=== PATIENT | female | born 1935 | race Caucasian/White ===

== ENCOUNTER 2018-02-21 18:15 | Observation (INO) ==
[2018-02-21] MEDS ORDERED: 0.9 % Sodium Chloride 1,000 ML IVC ONE (18:19)
--- NOTE | 2018-02-21 18:22 | Emergency Department Note ---
Disposition Clinical Impression: IgA myeloma, Weakness Disposition: Still a Patient Condition: Good General Adult HPI - General Stated complaint: FAUSTINA Time Seen by Provider: 02/21/18 18:18 Source: patient, family, EMS Mode of arrival: EMS Limitations: no limitations Nursing Notes Reviewed: Yes Vital Signs Reviewed: Yes - History of Present Illness HPI Narrative: Patient presents to the ED via EMS and was seen and evaluated upon arrival. Patient has a history of multiple myeloma and is followed at cancer Center here. Saw her physician today. Family states that patient has been complaining of weakness, decreased appetite and shortness of breath. Shortness of breath started around 3 PM. No cough or chest pain associated with it. She denies any history of COPD. She is currently receiving chemotherapy and radiation on her chest. Family reports that she has had less than 100 kike all day. Reports that she feels very dehydrated and does not feel well at all. - Related Data Home Medications Medication Instructions Recorded Confirmed Multivitamin [Multivitamins] 1 each PO DAILY 05/28/15 02/20/18 Aspirin 81 mg PO DAILY 06/04/15 02/20/18 Furosemide [Lasix] 20 mg PO DAILY PRN 02/07/17 02/20/18 Lidocaine/Prilocaine CREAM [Emla] 1 gm TP AD 02/07/17 02/20/18 Meclizine [Antivert] 12.5 mg PO TID PRN 02/07/17 02/20/18 Prochlorperazine Maleate 10 mg PO Q6HR PRN 02/07/17 02/20/18 [Compazine] Levothyroxine Sodium [Levo-T] 50 mcg PO DAILY 01/16/18 02/20/18 Previous Rx's Medication Instructions Recorded Cyanocobalamin (B-12) [Vitamin B12] 1,000 mcg PO DAILY #90 tablet 05/15/17 Mometasone Furoate [Nasonex] 17 gm NS DAILY #1 bottle 07/28/17 Omeprazole [PriLOSEC] 20 mg PO BIDAC #60 cap 08/21/17 valACYclovir [Valtrex] 500 mg PO BID #60 tablet 10/20/17 Oxycodone HCl [Oxaydo] 1 tab PO Q8H PRN #90 tablet.orl 11/14/17 Diphenoxylate/Atropine [Lomotil 1 tab PO QID PRN 5 Days #30 tablet 11/28/17 2.5 mg/0.025 mg] Metoprolol [Lopressor] 1 tab PO BID #60 tablet 11/28/17 Morphine Sulfate [Arymo ER] 30 mg PO BID 30 Days #60 tab.po.er 02/08/18 Potassium Chloride [K-Tab ER] 1 tab PO DAILY #30 tablet.er 02/19/18 Allergies Allergy/AdvReac Type Severity Reaction Status Date / Time Sulfa (Sulfonamide Allergy Hives Verified 02/20/18 08:18 Antibiotics) Review of Systems: As reviewed in the HPI. All other systems reviewed are negative or normal. Past Medical History - Past Medical History Attestation: Yes The following information was validated with the patient. Source: patient Medical history: Reports: arthritis, cancer, DVT, hypertension, osteoporosis Surgical history: Reports: no surgical history Psychiatric history: Reports: no psych history - Social History Smoking Status: Never smoker Smokeless Tobacco Status: No Alcohol use: Reports: none Drug use: Reports: none Physical Exam - General Limitations: no limitations General appearance: alert, in no apparent distress, cachectic - Head Head exam: atraumatic, normocephalic, normal inspection - Eye Eye exam: Present: normal appearance, PERRL, EOMI - ENT ENT exam: normal exam, normal oropharynx, mucous membranes moist - Chest Chest inspection: Present: normal inspection, symmetric chest wall rise - Respiratory Respiratory exam: Present: normal lung sounds bilaterally - Cardiovascular Cardiovascular exam: Present: regular rate, normal rhythm, normal heart sounds - Abdominal Exam Abdominal exam: Present: soft, Non-Tender. Absent: tenderness, distention, guarding, rebound, rigidity - Extremities Exam Extremities exam: Present: normal inspection, full ROM. Absent: tenderness, pedal edema - Neurological Exam Neurological exam: Present: alert, oriented X3 - Psychiatric Psychiatric exam: Present: flat affect - Skin Skin exam: Present: warm, dry, intact, normal color Course Course Narrative: Patient presenting the ED with weakness, shortness of breath and decreased appetite. She is a cancer patient. Looks dehydrated. We will check labs, chest x-ray. Patient will be signed out to the oncoming nighttime team, Dr. Torres and Lupillo
[2018-02-21 18:54] LABS: Bilirubin,Urine Negative (Negative); Blood,Urine Negative (Negative); Clarity,Urine Clear (Clear); Color,Urine Yellow (Yellow); Glucose,Urine (UA) Normal (Normal); Ketones,Urine Negative (Negative); Leukocyte Esterase,Urine Negative (Negative); Nitrite,Urine Negative (Negative); Protein,Urine 30 mg/dL (Neg-Trace); Urobilinogen,Urine Normal (Normal)
[2018-02-21 18:59] LABS: Bacteria,Urine None Seen per hpf (None-Few); Hyaline Casts,Urine None Seen per lpf (None-Few); RBC,Urine 0-3 per hpf (0-3); Squamous Epithelial Cell,Urine Many per lpf (None-Few); WBC,Urine 0-3 per hpf (0-3)
[2018-02-21 19:09] LABS: Mean Corpuscular HGB Conc 33.1 g/dL (31.6-35.5); Red Cell Distribution Width 17.5 % (11.5-14.5)
[2018-02-21 19:11] LABS: Basophils % 0.3 %; Eosinophils % 0.6 %; Hematocrit 27.2 % (35.3-44.9); Immature Granulocytes % 1.4 % (0-4); Immature Platelets 4.9 % (1.1-6.1); Lymphocytes # 0.3 K/mcL (0.6-4.6); Mean Corpuscular Volume 108.8 fL (83.0-100.0); Mean Platelet Volume 11.9 fL (9.4-12.4); Monocytes # 0.2 K/mcL (0.0-1.3); Monocytes % 4.4 %; Neutrophils # 3.1 K/mcL (1.6-8.9); Platelet Count 66 K/mcL (140-400); Segmented Neutrophils % 85.3 %
[2018-02-21 19:14] LABS: INR 1.2; Prothrombin Time 12.7 Seconds (9.4-12.1)
[2018-02-21 19:17] LABS: Activated Partial Thrombo Time 55.4 Seconds (26.0-36.0)
[2018-02-21 19:26] LABS: Platelet Estimate Decreased (Normal)
[2018-02-21 19:34] LABS: BUN/Creatinine Ratio 21 (6-26); Blood Urea Nitrogen 13 mg/dL (8-23); Calcium 8.4 mg/dL (8.6-10.3); Carbon Dioxide 24 mEq/L (23-29); Chloride 103 mEq/L (98-107); Creatine Kinase 21 Units/L (30-223); Glucose 99 mg/dL (70-105); Magnesium 1.7 mg/dL (1.6-2.6); Osmolality,Calculated 286 (280-300); Phosphorous 3.4 mg/dL (2.7-4.5); Potassium 3.8 mEq/L (3.5-5.1); Sodium 138 mEq/L (136-145); Troponin I < 0.03 ng/mL (< 0.04); eGFR For African Americans > 60 (> 60); eGFR For Non-African Americans > 60 (> 60)
--- NOTE | 2018-02-21 20:29 | Emergency Department Note ---
Disposition Clinical Impression: IgA myeloma, Weakness, Pancytopenia, Pleural effusion CHF (congestive heart failure) Qualifiers: Heart failure type: unspecified Heart failure chronicity: acute on chronic Qualified Code(s): I50.9 - Heart failure, unspecified Disposition: Admitted As Inpatient Condition: Good Time of Disposition: 21:10 General Adult HPI - General Chief complaint: ED Shortness of Breath/Dyspnea Stated complaint: FAUSTINA Time Seen by Provider: 02/21/18 18:18 Source: patient, family, EMS Mode of arrival: EMS Limitations: no limitations Nursing Notes Reviewed: Yes Vital Signs Reviewed: Yes - History of Present Illness Pain Scale: 4 - Related Data Home Medications Medication Instructions Recorded Confirmed Multivitamin [Multivitamins] 1 each PO DAILY 05/28/15 02/21/18 Aspirin 81 mg PO DAILY 06/04/15 02/21/18 Furosemide [Lasix] 20 mg PO DAILY PRN 02/07/17 02/21/18 Lidocaine/Prilocaine CREAM [Emla] 1 gm TP AD 02/07/17 02/21/18 Meclizine [Antivert] 12.5 mg PO TID PRN 02/07/17 02/21/18 Prochlorperazine Maleate 10 mg PO Q6HR PRN 02/07/17 02/21/18 [Compazine] Levothyroxine Sodium 75 mcg PO DAILY 02/21/18 02/21/18 Metoprolol [Lopressor] 25 mg PO BID 02/21/18 02/21/18 Oxycodone HCl [Oxaydo] 1 tab PO Q4H PRN 02/21/18 02/21/18 Previous Rx's Medication Instructions Recorded Cyanocobalamin (B-12) [Vitamin B12] 1,000 mcg PO DAILY #90 tablet 05/15/17 Omeprazole [PriLOSEC] 20 mg PO BIDAC #60 cap 08/21/17 valACYclovir [Valtrex] 500 mg PO BID #60 tablet 10/20/17 Diphenoxylate/Atropine [Lomotil 1 tab PO QID PRN 5 Days #30 tablet 11/28/17 2.5 mg/0.025 mg] Morphine Sulfate [Arymo ER] 30 mg PO BID 30 Days #60 tab.po.er 02/08/18 Potassium Chloride [K-Tab ER] 1 tab PO DAILY #30 tablet.er 02/19/18 Allergies Allergy/AdvReac Type Severity Reaction Status Date / Time Sulfa (Sulfonamide Allergy Hives Verified 02/20/18 08:18 Antibiotics) Past Medical History - Past Medical History Medical history: Reports: arthritis, cancer, DVT, hypertension, osteoporosis Surgical history: Reports: no surgical history Psychiatric history: Reports: no psych history - Social History Smoking Status: Never smoker Smokeless Tobacco Status: No Alcohol use: Reports: none Drug use: Reports: none Physical Exam - General Limitations: no limitations General appearance: alert, in no apparent distress, cachectic Course Course Narrative: Patient signed out by the day crew. Please see their note for further. Patient has a history of multiple myeloma. She reports feeling increasingly weak to coming to the hospital today. She also reports occasional shortness of breath. She states her family points out or shortness of breath more than she does. She denies any cough or congestion. She denies any fevers. She is a cachectic small female resting in bed. She is on oxygen at this time. When oxygen is turned off her oxygen saturation drops into the 80s. Her lung sounds are relatively clear however on exam. She does have a pleural effusion on chest x-ray. She is also pancytopenic. We will admit patient to the hospital for decomposition, new CHF as her BNP is also elevated in the 500s. She also has some pitting edema to her lower extremities. She states that she has a history of some edema but never this bad. States that she does wear SHELLY hose occasionally. - Consultations Consultation #1: Dr Duque accepted Pt in stable condition. Time: 20:29 Vital Signs Temperature 98.2 F 02/21/18 18:24 Pulse Rate 82 02/21/18 18:24 Respiratory Rate 18 02/21/18 18:24 Blood Pressure 128/83 02/21/18 18:24 O2 Sat by Pulse Oximetry 92 02/21/18 18:24 Temperature 98.2 F 02/21/18 18:24 Pulse Rate 83 02/21/18 19:42 Respiratory Rate 16 02/21/18 19:42 Blood Pressure 141/79 02/21/18 19:42 O2 Sat by Pulse Oximetry 92 02/21/18 19:44 Oxygen Delivery Oxygen Delivery Room Air Medical Decision Making - Medical Records Medical records reviewed: Yes I reviewed the patient's medical records. - Lab Data Lab results reviewed: Yes I reviewed the patient's lab results. Result diagrams: 02/21/18 18:56 02/21/18 18:19 Lab Results 02/21/18 02/21/18 02/21/18 Range/Units 18:19 18:19 18:45 WBC (4.3-11.1) K/mcL RBC (3.82-4.97) M/mcL Hgb (11.5-15.4) g/dL Hct (35.3-44.9) % MCV (83.0-100.0) fL MCH (28.0-33.3) pg MCHC (31.6-35.5) g/dL RDW (11.5-14.5) % Plt Count (140-400) K/mcL MPV (9.4-12.4) fL Immature Gran % (0-4) % Seg Neutrophils % % Lymphocytes % % Monocytes % % Eosinophils % % Basophils % % Neutrophils # (1.6-8.9) K/mcL Lymphocytes # (0.6-4.6) K/mcL Monocytes # (0.0-1.3) K/mcL Eosinophils # (0.0-0.6) K/mcL Basophils # (0.0-0.2) K/mcL Platelet Estimate (Normal) Immature Plt Fraction (1.1-6.1) % PT (9.4-12.1) Seconds INR APTT (26.0-36.0) Seconds Sodium 138 (136-145) mEq/L Potassium 3.8 (3.5-5.1) mEq/L Chloride 103 (98-107) mEq/L Carbon Dioxide 24 (23-29) mEq/L BUN 13 (8-23) mg/dL Creatinine 0.63 (0.60-1.20) mg/dL Est GFR ( Amer) > 60 (> 60) Est GFR (Non-Af Amer) > 60 (> 60) BUN/Creatinine Ratio 21 (6-26) Glucose 99 (70-105) mg/dL Calculated Osmolality 286 (280-300) Lactic Acid (0.5-2.2) mmol/L Calcium 8.4 L (8.6-10.3) mg/dL Phosphorus 3.4 (2.7-4.5) mg/dL Magnesium 1.7 (1.6-2.6) mg/dL Creatine Kinase 21 L (30-223) Units/L Troponin I < 0.03 (< 0.04) ng/mL B-Natriuretic Peptide 528 H (Less than 100) pg/mL Urine Color Yellow (Yellow) Urine Clarity Clear (Clear) Urine pH 6.0 (5.0-8.0) pH Units Ur Specific [place] 1.020 (1.010-1.025) Urine Protein 30 H (Neg-Trace) mg/dL Urine Glucose (UA) Normal (Normal) mg/dL Urine Ketones Negative (Negative) mg/dL Urine Blood Negative (Negative) Urine Nitrite Negative (Negative) Urine Bilirubin Negative (Negative) Urine Urobilinogen Normal (Normal) mg/dL Ur Leukocyte Esterase Negative (Negative) Urine Microscopic RBC 0-3 (0-3) per hpf Urine Microscopic WBC 0-3 (0-3) per hpf Ur Squamous Epith Cells Many H (None-Few) per lpf Urine Bacteria None Seen (None-Few) per hpf Hyaline Casts None Seen (None-Few) per lpf Ur Culture Indicated? NO (NO) 02/21/18 02/21/18 02/21/18 Range/Units 18:56 18:56 18:56 WBC 3.6 L (4.3-11.1) K/mcL RBC 2.50 L (3.82-4.97) M/mcL Hgb 9.0 L (11.5-15.4) g/dL Hct 27.2 L (35.3-44.9) % MCV 108.8 H (83.0-100.0) fL MCH 36.0 H (28.0-33.3) pg MCHC 33.1 (31.6-35.5) g/dL RDW 17.5 H (11.5-14.5) % Plt Count 66 L (140-400) K/mcL MPV 11.9 (9.4-12.4) fL Immature Gran % 1.4 (0-4) % Seg Neutrophils % 85.3 % Lymphocytes % 8.0 % Monocytes % 4.4 % Eosinophils % 0.6 % Basophils % 0.3 % Neutrophils # 3.1 (1.6-8.9) K/mcL Lymphocytes # 0.3 L (0.6-4.6) K/mcL Monocytes # 0.2 (0.0-1.3) K/mcL Eosinophils # 0.0 (0.0-0.6) K/mcL Basophils # 0.0 (0.0-0.2) K/mcL Platelet Estimate Decreased L (Normal) Immature Plt Fraction 4.9 (1.1-6.1) % PT 12.7 H (9.4-12.1) Seconds INR 1.2 APTT 55.4 H (26.0-36.0) Seconds Sodium (136-145) mEq/L Potassium (3.5-5.1) mEq/L Chloride (98-107) mEq/L Carbon Dioxide (23-29) mEq/L BUN (8-23) mg/dL Creatinine (0.60-1.20) mg/dL Est GFR ( Amer) (> 60) Est GFR (Non-Af Amer) (> 60) BUN/Creatinine Ratio (6-26) Glucose (70-105) mg/dL Calculated Osmolality (280-300) Lactic Acid 2.2 (0.5-2.2) mmol/L Calcium (8.6-10.3) mg/dL Phosphorus (2.7-4.5) mg/dL Magnesium (1.6-2.6) mg/dL Creatine Kinase (30-223) Units/L Troponin I (< 0.04) ng/mL B-Natriuretic Peptide (Less than 100) pg/mL Urine Color (Yellow) Urine Clarity (Clear) Urine pH (5.0-8.0) pH Units Ur Specific [place] (1.010-1.025) Urine Protein (Neg-Trace) mg/dL Urine Glucose (UA) (Normal) mg/dL Urine Ketones (Negative) mg/dL Urine Blood (Negative) Urine Nitrite (Negative) Urine Bilirubin (Negative) Urine Urobilinogen (Normal) mg/dL Ur Leukocyte Esterase (Negative) Urine Microscopic RBC (0-3) per hpf Urine Microscopic WBC (0-3) per hpf Ur Squamous Epith Cells (None-Few) per lpf Urine Bacteria (None-Few) per hpf Hyaline Casts (None-Few) per lpf Ur Culture Indicated? (NO) - Radiology Data Radiology results reviewed: Yes I reviewed the patient's radiology results. Chest X-Ray 02/21/18 18:19 IMPRESSION: 1. Moderate to large left pleural effusion with associated atelectasis. D/ / Sourav Romo MD / Sourav Romo MD Interpreting Provider: Sourav Romo MD
--- NOTE | 2018-02-21 21:13 | Internal Med History&Physical ---
Date of Encounter: 02/21/18 Time of Encounter: 21:09 Internal Medicine - H&P: HPI Chief complaint: fatigue History of present illness: Ms. Rodriguez is a 82 year old female with a history of treatment refractory progressive IgA multiple myeloma under the care of oncology who presents with progressive fatigue and decline over the past 3 weeks suspected secondary to progressive myeloma. Was also found to have moderate to large left-sided pleural effusion. 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 She has refractory disease status post multiple lines of therapy most recently daratumumab with plans to commence further palliative therapy with oncology on the eighth of this month. At baseline she she reports using a cane but has had prior dependence on a walker or wheelchair. She lives with her but has a supportive family who comes by to check on her frequently. She presents with intermittent fatigue last 3-4 weeks that associated with some shortness of breath on exertion around the house. Also noted progressive decrease appetite, not eating with weight loss. EKG personally reviewed with rate 78, normal sinus rhythm, poor R-wave progression XR/XR chest 1V portable IMPRESSION: 1. Moderate to large left pleural effusion with associated atelectasis. Past Med Surg Social Fam HX - Past Medical History Medical history: arthritis, cancer, DVT, hypertension, osteoporosis Psychiatric history: no psych history - Past Surgical History Surgical History: no surgical history - Social History Smoking Status: Never smoker Smokeless Tobacco Status: No Alcohol use: none Drug use: none Internal Medicine - H&P: Meds Multivitamin [Multivitamins] 1 each PO DAILY 05/28/15 [History] Aspirin 81 mg PO DAILY 06/04/15 [History] Furosemide [Lasix] 20 mg PO DAILY PRN 02/07/17 [History] Lidocaine/Prilocaine CREAM [Emla] 1 gm TP AD 02/07/17 [History] Meclizine [Antivert] 12.5 mg PO TID PRN 02/07/17 [History] Prochlorperazine Maleate [Compazine] 10 mg PO Q6HR PRN 02/07/17 [History] Cyanocobalamin (B-12) [Vitamin B12] 1,000 mcg PO DAILY #90 tablet 05/15/17 [Rx] Omeprazole [PriLOSEC] 20 mg PO BIDAC #60 cap 08/21/17 [Rx] valACYclovir [Valtrex] 500 mg PO BID #60 tablet 10/20/17 [Rx] Diphenoxylate/Atropine [Lomotil 2.5 mg/0.025 mg] 1 tab PO QID PRN 5 Days #30 tablet 11/28/17 [Rx] Morphine Sulfate [Arymo ER] 30 mg PO BID 30 Days #60 tab.po.er 02/08/18 [Rx] Potassium Chloride [K-Tab ER] 1 tab PO DAILY #30 tablet.er 02/19/18 [Rx] Levothyroxine Sodium 75 mcg PO DAILY 02/21/18 [History] Metoprolol [Lopressor] 25 mg PO BID 02/21/18 [History] Oxycodone HCl [Oxaydo] 1 tab PO Q4H PRN 02/21/18 [History] 3 Allergy/AdvReac Type Severity Reaction Status Date / Time Sulfa (Sulfonamide Allergy Hives Verified 02/20/18 08:18 Antibiotics) All Systems PM: A 10-system review of systems was performed and is negative for pertinent findings except as documented above in the HPI. Review of systems: ROS 14 point review of systems reviewed as best as possible given presentation. Pertinent positive or negative as per HPI or otherwise reviewed as negative - Constitutional Vitals: Temp Pulse Resp BP Pulse Ox 98.2 F 83 16 141/79 92 02/21/18 18:24 02/21/18 19:42 02/21/18 19:42 02/21/18 19:42 02/21/18 19:44 Exam: General - AAO x 3. Cachectic Psych - Appropriate affect/speech. No agitation Eyes - ALEXIA. Eye lids intact. No scleral icterus Heart - Sinus. RRR. S1 and S2 present. No added HS/murmurs appreciated. No elevated JVD appreciated. Lung - Adequate air entry b/l, decreased breath sounds along the left base, no crackles or wheezes. Right-sided chest port. Swelling of the left breast GI - Soft, non-tender. No hepatosplenomegaly/ascites. BS+ - No CVA/suprapubic tenderness or palpable bladder distension Skin - Intact. No rash/petechiae/ecchymosis. Warm extremities Internal Med - H&P Results - Labs CBC & Chem 7: 02/21/18 18:56 02/21/18 18:19 Labs: Short CBC 02/21/18 Range/Units 18:56 WBC 3.6 L (4.3-11.1) K/mcL Hgb 9.0 L (11.5-15.4) g/dL Hct 27.2 L (35.3-44.9) % Plt Count 66 L (140-400) K/mcL Neutrophils # 3.1 (1.6-8.9) K/mcL BMP 02/21/18 18:19 Sodium 138 Potassium 3.8 Chloride 103 Carbon Dioxide 24 BUN 13 Creatinine 0.63 Glucose 99 Calcium 8.4 L Cardiac Enzymes 02/21/18 Range/Units 18:19 Troponin I < 0.03 (< 0.04) ng/mL Urine 02/21/18 Range/Units 18:45 Urine Color Yellow (Yellow) Urine Clarity Clear (Clear) Urine pH 6.0 (5.0-8.0) pH Units Ur Specific [place] 1.020 (1.010-1.025) Urine Protein 30 H (Neg-Trace) mg/dL Urine Glucose (UA) Normal (Normal) mg/dL - Impressions ITS Impressions Chest X-Ray 02/21/18 18:19 IMPRESSION: 1. Moderate to large left pleural effusion with associated atelectasis. D/ / Sourav Romo MD / Sourav Romo MD Interpreting Provider: Sourav Romo MD - Assessment and plan (1) Pleural effusion Current Visit: Yes Status: Acute Assessment and plan: Suspect to be related to progressive myeloma Consult IR for thoracentesis - palliative intent. We will also send routine fluid analysis (2) Weakness Current Visit: Yes Status: Acute Assessment and plan: Likely related to progressive myeloma Currently pending further palliative treatment Consult oncology to evaluate (3) IgA myeloma Current Visit: Yes Status: Chronic Assessment and plan: Management per oncology (4) Cancer related pain Current Visit: No Status: Chronic Assessment and plan: On morphine, oxycodone ,long and short acting for breakthrough (5) Hypothyroid Current Visit: Yes Status: Acute Assessment and plan: On thyroid replacement check tsh, ft4 Qualifiers: Hypothyroidism type: other Qualified Code(s): E03.8 - Other specified hypothyroidism (6) HTN (hypertension) Current Visit: Yes Status: Acute Assessment and plan: now normotensive hold metoprolol for now Qualifiers: Hypertension type: essential hypertension Qualified Code(s): I10 - Essential (primary) hypertension - Time Spent With Patient Total time spent is greater than 50% in coordination of care (as documented) at patient's floor/unit and/or counseling patient:
[2018-02-21] MEDS ORDERED: Diphenoxylate/Atropine 1 TAB TABLET PO PRN (21:15)
[2018-02-21] MEDS ORDERED: Naloxone 0.4 MG/ML INJ IVP PRN (21:17)
[2018-02-21] MEDS: *HR* OxyCODONE Immed Rel 5 MG TABLET PO PRN (22:32)
[2018-02-22 03:36] LABS: Mean Corpuscular Volume 108.7 fL (83.0-100.0)
[2018-02-22 03:37] LABS: Eosinophils % 0.9 %; Hematocrit 24.9 % (35.3-44.9); Hemoglobin 7.9 g/dL (11.5-15.4); Immature Granulocytes % 0.9 % (0-4); Immature Platelets 6.2 % (1.1-6.1); Lymphocytes # 0.3 K/mcL (0.6-4.6); Lymphocytes % 7.8 %; Mean Corpuscular HGB Conc 31.7 g/dL (31.6-35.5); Mean Corpuscular Hemoglobin 34.5 pg (28.0-33.3); Mean Platelet Volume 11.3 fL (9.4-12.4); Monocytes # 0.2 K/mcL (0.0-1.3); Neutrophils # 2.7 K/mcL (1.6-8.9); Red Blood Count 2.29 M/mcL (3.82-4.97); Red Cell Distribution Width 17.9 % (11.5-14.5); Segmented Neutrophils % 85.4 %
[2018-02-22 03:41] LABS: INR 1.2
[2018-02-22 03:43] LABS: Activated Partial Thrombo Time 34.6 Seconds (26.0-36.0)
[2018-02-22 03:53] LABS: Platelet Count 63 K/mcL (140-400)
[2018-02-22 04:00] LABS: Alanine Aminotransferase 4 Units/L (7-52); Albumin 1.9 g/dL (3.5-5.7); Albumin/Globulin Ratio 0.4 (1.1-2.2); Alkaline Phosphatase 47 Units/L (34-104); Aspartate Amino Transferase 21 Units/L (13-39); BUN/Creatinine Ratio 24 (6-26); Bilirubin,Total 0.2 mg/dL (0.3-1.0); Blood Urea Nitrogen 11 mg/dL (8-23); Calcium 8.2 mg/dL (8.6-10.3); Carbon Dioxide 25 mEq/L (23-29); Chloride 105 mEq/L (98-107); Globulin 5.3 g/dL (2.4-3.5); Glucose 83 mg/dL (70-105); Osmolality,Calculated 289 (280-300); Potassium 3.7 mEq/L (3.5-5.1); Sodium 140 mEq/L (136-145); Total Protein 7.2 g/dL (6.4-8.9); eGFR For African Americans > 60 (> 60); eGFR For Non-African Americans > 60 (> 60)
[2018-02-22 04:13] LABS: Thyroid Stimulating Hormone 3.165 mcIU/mL (0.340-5.600)
[2018-02-22 04:14] LABS: Anisocytosis 1+ (Not Present); Platelet Estimate Decreased (Normal)
[2018-02-22] MEDS: *HR* OxyCODONE Immed Rel 5 MG TABLET PO PRN ×2 (06:00→22:10)
[2018-02-22] MEDS ORDERED: *HR* Morphine Sulfate SR (12 HR) 30 MG TABLET.ER PO SCH (09:00)
[2018-02-22] MEDS: Aspirin 81 MG TAB.CHEW PO SCH (10:32)
[2018-02-22] MEDS: Cyanocobalamin (B-12) 1,000 MCG TABLET PO SCH (10:32)
[2018-02-22] MEDS: valACYclovir 500 MG TABLET PO SCH ×2 (10:32→20:29)
[2018-02-22 12:02] LABS: Amylase,Pleural Fluid 13 Units/L (No Ref Range); Glucose,Pleural Fluid 87 mg/dL (No Ref Range); LDH,Pleural Fluid 146 Units/L (No Ref Range); Total Protein,Pleural Fluid 4.3 g/dL (No Ref Range); Triglycerides, Pleural Fluid 10 mg/dL (No Ref Range)
--- NOTE | 2018-02-22 12:49 | Oncology Inp Consult Note ---
<Joyce Lehman L - Last Filed: 02/22/18 14:31> Date of Encounter: 02/22/18 Time of Encounter: 11:30 Assessment and Plan (1) Cancer related pain Status: Chronic Assessment and plan: Reports generalized pain and lower back pain. Patient reports adequate control with MS Contin and roxicodone. Appreciate continued recommendations per Palliative Care Team and Hospice (2) Pancytopenia Status: Acute Assessment and plan: Secondary to Treatment and MM (3) Pleural effusion Status: Acute Assessment and plan: S/p thoracentesis. Patient unfortunately does not report decrease in pain s/p procedure. The majority of patients pain and weakness likely secondary to cancer burden along with combination of other comorbidities (4) IgA myeloma Status: Chronic Assessment and plan: Refractory with multiple previous lines of treatment since diagnosis in 2012, prognosis poor. Planned for new treatment initiation of carfilzomib, pomalidomide and decadron on 02/27. Following further discussion with patient and patients family today at bedside, patient is concerned that she is too weak to undergo further treatment. Wishes to transition to hospice with patient and family all in agreement. The hospice philosophy was discussed. Palliative care consulted and plan to consult with patient/family soon with the goal to discharge home to hospice. Appreciate continued recommendations and arrangements per palliative and primary team. Patients treating oncologist will be notified regarding decision to transition to hospice. - Data of Consult Patient: known to practice within the last 3 years Consult date: 02/22/18 Requesting Physician: Nate Bonner DO Primary Care Provider: PCP NONE - Consult Narrative Reason for consult: Multiple Myeloma History of present illness: Ms. Rodriguez is a 82 year old female with oncologic history significant for IgA lambda multiple myeloma: Diagnosed July 2013. She has received multiple lines of treatment to date, most recently she was planned to start Carfilzomib, pomalidomide and decadron cycle one on February 27. Overall, she is quite deconditioned and has exhausted multiple lines of therapy with history of associated toxicity. She presented to [facility] on with complaints of increased weakness, debility and SOB. Past Med Surg Social Fam HX - Past Medical History Medical history: arthritis, cancer, DVT, hypertension, osteoporosis Psychiatric history: no psych history - Past Surgical History Surgical History: no surgical history - Social History Smoking Status: Never smoker Smokeless Tobacco Status: No Alcohol use: none Drug use: none - Family History Mother Twin of Family Member: Yes Hx Family Cardiac Disorders: Yes Hx Family Respiratory Disorders: Yes (father COPD) Hx Family Cancer: Yes (aunt Breast) Hx Family GI Disorders: No Hx Family Genitourinary Disorders: No Hx Family Endocrine Disorder: No Hx Family Musculoskeletal Disorders: No Hx Family Neuromuscular Disorders: No Hx Family Neurologic Disorders: No Hx Family HEENT Disorders: No Hx Family Autoimmune Disorders: No Hx Family Reproductive Disorders: No Hx Family Psychosocial Disorders: No Hx Family Medical Disorders: No Medications and Allergies Multivitamin [Multivitamins] 1 each PO DAILY 05/28/15 [History] Aspirin 81 mg PO DAILY 06/04/15 [History] Furosemide [Lasix] 20 mg PO DAILY PRN 02/07/17 [History] Lidocaine/Prilocaine CREAM [Emla] 1 gm TP AD 02/07/17 [History] Meclizine [Antivert] 12.5 mg PO TID PRN 02/07/17 [History] Prochlorperazine Maleate [Compazine] 10 mg PO Q6HR PRN 02/07/17 [History] Cyanocobalamin (B-12) [Vitamin B12] 1,000 mcg PO DAILY #90 tablet 05/15/17 [Rx] Omeprazole [PriLOSEC] 20 mg PO BIDAC #60 cap 08/21/17 [Rx] valACYclovir [Valtrex] 500 mg PO BID #60 tablet 10/20/17 [Rx] Diphenoxylate/Atropine [Lomotil 2.5 mg/0.025 mg] 1 tab PO QID PRN 5 Days #30 tablet 11/28/17 [Rx] Morphine Sulfate [Arymo ER] 30 mg PO BID 30 Days #60 tab.po.er 02/08/18 [Rx] Potassium Chloride [K-Tab ER] 1 tab PO DAILY #30 tablet.er 02/19/18 [Rx] Levothyroxine Sodium 75 mcg PO DAILY 02/21/18 [History] Metoprolol [Lopressor] 25 mg PO BID 02/21/18 [History] Oxycodone HCl [Oxaydo] 1 tab PO Q4H PRN 02/21/18 [History] 3 Allergy/AdvReac Type Severity Reaction Status Date / Time Sulfa (Sulfonamide Allergy Hives Verified 05/01/18 08:18 Antibiotics) Constitutional: Present: anorexia, fatigue, weakness, weight loss. Absent: chills, fever(s), frequent falls Eyes: Absent: change in vision Nose, mouth and throat: Absent: dysphagia Cardiovascular: Absent: chest pain, irregular heart rhythm Respiratory: Present: dyspnea. Absent: cough Gastrointestinal: Present: diarrhea. Absent: abdominal pain, nausea, vomiting Genitourinary: Absent: dysuria Musculoskeletal: Present: muscle weakness Integumentary: Absent: wounds Neurological: Absent: focal weakness, frequent falls Psychiatric: Present: change in appetite Endocrine: Present: fatigue Hematologic/Lymphatic: Present: as per HPI Oncology - Exam - Constitutional Vitals: Temp Pulse Resp BP Pulse Ox 97.6 F 81 18 137/80 95 02/22/18 11:20 02/22/18 11:20 02/22/18 11:20 02/22/18 11:20 02/22/18 11:20 General appearance: cooperative, no acute distress, thin, no febrile Exam: cachectic, chronically ill appearing - Head Head exam: Present: atraumatic - Respiratory Respiratory exam: Present: CTAB. Absent: respiratory distress - Cardiovascular Cardiovascular exam: Present: RRR, +S1, +S2, tachycardia - GI/Abdominal GI/Abdominal exam: Present: hypoactive bowel sounds, soft. Absent: tenderness - Extremities Exam Extremities exam: Present: normal inspection. Absent: calf tenderness - Neurological Exam Neurological exam: Present: alert, oriented X3, no focal deficits, strengths equal and symetr throughout - Psychiatric Psychiatric exam: Present: normal affect, normal mood - Skin Skin exam: Present: dry, pallor, warm Oncology - Results Labs: Short CBC 02/22/18 Range/Units 03:18 WBC 3.2 L (4.3-11.1) K/mcL Hgb 7.9 L (11.5-15.4) g/dL Hct 24.9 L (35.3-44.9) % Plt Count 63 L (140-400) K/mcL Neutrophils # 2.7 (1.6-8.9) K/mcL BMP 02/22/18 03:19 Sodium 140 Potassium 3.7 Chloride 105 Carbon Dioxide 25 BUN 11 Creatinine 0.46 L Glucose 83 Calcium 8.2 L Liver Function 02/22/18 Range/Units 03:19 Total Bilirubin 0.2 L (0.3-1.0) mg/dL AST 21 (13-39) Units/L ALT 4 L (7-52) Units/L Alkaline Phosphatase 47 (34-104) Units/L Albumin 1.9 L (3.5-5.7) g/dL Consult Discharge Plan - Plan Referrals: Malik Morales MD [Non-Partnered Physician] - <JosafatKofi - Last Filed: 02/23/18 11:56> Date of Encounter: 02/22/18 - Data of Consult Requesting Physician: Nate Bonner DO Primary Care Provider: PCP NONE - Consult Narrative History of present illness: Ms. Rodriguez is a 82 year old female Oncology - Exam - Constitutional Vitals: Temp Pulse Resp BP Pulse Ox 97.8 F 91 14 141/81 93 02/23/18 10:53 02/23/18 10:53 02/23/18 10:53 02/23/18 10:53 02/23/18 10:53 - Attending Attestation seen and examined patient and agree with assessment and plan. Had long conversation with patient and family. They are amenable to home hospice. Given her progressive myeloma, her continued deconditioning, further therapy would likely make things more burdensome than better.
--- NOTE | 2018-02-22 14:36 | Palliative - Consult Note ---
Date of Encounter: 02/22/18 Time of Encounter: 14:30 - Assessment and Plan (1) Cancer related pain Current Visit: No Status: Chronic Assessment and plan: Patient states that she has pain with pretty much any movement. She has recently been switched from a Fentanyl patch to MS Contin - family at bedside states that she was too cachexic for good absorption of patch. She was on 75mcg of Fentanyl at that time. She currently is prescribed 60mg/day of Morphine, which likely is not enough for her pain management. She utilizes 3-4 breakthrough doses of Oxycodone daily as well. D/W pt and daughter at bedside. Will increase MS Contin to 30mg every 8 hours and continue Oxycodone for breakthrough pain. Monitor and adjust as necessary. (2) Counseling regarding advanced care planning and goals of care Current Visit: Yes Status: Acute Assessment and plan: Held goals of care discussion with pt and family. Discussed clinical status and recent decline in her condition. Patient able to make her own medical decisions, understands that she is no longer a good candidate for further therapy. Discussed code status, and she would like to transition to comfort care, and enroll in hospice at discharge. Code status transitioned to DNRCC and state form completed and signed by patient. Copies provided to family. Discussed hospice at length, they would like to enroll in [facility] upon discharge. Has multiple DME needs - these were called to [facility]. Anticipate D/C tomorrow - D/W Dr. Bonner as well as Dr. Eubanks. THey desire to enroll pt in hospice after she is home tomorrow and desire to take her home by car. Will f/u in am. (3) CHF (congestive heart failure) Current Visit: Yes Status: Acute Qualifiers: Heart failure type: unspecified Heart failure chronicity: acute on chronic Qualified Code(s): I50.9 - Heart failure, unspecified (4) Pleural effusion Current Visit: Yes Status: Acute (5) IgA myeloma Current Visit: Yes Status: Chronic Palliative-CN HPI - Data of Consult Consult date: 02/22/18 Requesting Physician: Nate Bonner DO Primary Care Provider: PCP NONE - Consult Narrative History of present illness: Ms. Rodriguez is a 82 year old female with a history of multiple myeloma, who presented to the hospital with decline over the past month, shortness of breath , and progressive weakness. Patient states that up to about a month ago, she was still able to care for herself and do household work, as well as manage the finances. Her family has had to provide more assistance, and one daughter has taken some family leave from work. She was found to have left sided pleural effusion, and had thoracentesis earlier today. She has [facility] diagnosed back in [facility]. She has had multiple rounds of treatment and palliative radiation. Oncology consult was obtained, and was felt that she was no longer a good candidate for further therapy. Other pertinent medical history includes: arthritis, DVT, HTN, osteoporosis. Upon my visit, pt is alert and oriented - , 2 daughters, and son at the bedside. She is comfortable at present, but does state she is in quite a bit of back pain with movement. Appetite has been poor. Denies any shortness of breath. States she has had loose stools - even with taking her opioids. She states "she has had all the treatment she can take", and understands that her illness is terminal. CC: Nate Bonner, DO Past Med Surg Social Fam HX - Past Medical History Medical history: arthritis, cancer, DVT, hypertension, osteoporosis Psychiatric history: no psych history - Past Surgical History Surgical History: no surgical history - Social History Smoking Status: Never smoker Smokeless Tobacco Status: No Alcohol use: none Drug use: none - Family History Mother Twin of Family Member: Yes Hx Family Cardiac Disorders: Yes Hx Family Respiratory Disorders: Yes (father COPD) Hx Family Cancer: Yes (aunt Breast) Hx Family GI Disorders: No Hx Family Genitourinary Disorders: No Hx Family Endocrine Disorder: No Hx Family Musculoskeletal Disorders: No Hx Family Neuromuscular Disorders: No Hx Family Neurologic Disorders: No Hx Family HEENT Disorders: No Hx Family Autoimmune Disorders: No Hx Family Reproductive Disorders: No Hx Family Psychosocial Disorders: No Hx Family Medical Disorders: No Medications and Allergies Multivitamin [Multivitamins] 1 each PO DAILY 05/28/15 [History] Aspirin 81 mg PO DAILY 06/04/15 [History] Furosemide [Lasix] 20 mg PO DAILY PRN 02/07/17 [History] Lidocaine/Prilocaine CREAM [Emla] 1 gm TP AD 02/07/17 [History] Meclizine [Antivert] 12.5 mg PO TID PRN 02/07/17 [History] Prochlorperazine Maleate [Compazine] 10 mg PO Q6HR PRN 02/07/17 [History] Cyanocobalamin (B-12) [Vitamin B12] 1,000 mcg PO DAILY #90 tablet 05/15/17 [Rx] Omeprazole [PriLOSEC] 20 mg PO BIDAC #60 cap 08/21/17 [Rx] valACYclovir [Valtrex] 500 mg PO BID #60 tablet 10/20/17 [Rx] Diphenoxylate/Atropine [Lomotil 2.5 mg/0.025 mg] 1 tab PO QID PRN 5 Days #30 tablet 11/28/17 [Rx] Morphine Sulfate [Arymo ER] 30 mg PO BID 30 Days #60 tab.po.er 02/08/18 [Rx] Potassium Chloride [K-Tab ER] 1 tab PO DAILY #30 tablet.er 02/19/18 [Rx] Levothyroxine Sodium 75 mcg PO DAILY 02/21/18 [History] Metoprolol [Lopressor] 25 mg PO BID 02/21/18 [History] Oxycodone HCl [Oxaydo] 1 tab PO Q4H PRN 02/21/18 [History] 3 Allergy/AdvReac Type Severity Reaction Status Date / Time Sulfa (Sulfonamide Allergy Hives Verified 02/20/18 08:18 Antibiotics) All systems: reviewed and no additional remarkable complaints except as stated ( poor appetite, weight loss, back pain, generalized weakness) Palliative Care-Exam - Constitutional Vitals: Temp Pulse Resp BP Pulse Ox 97.6 F 81 18 137/80 95 02/22/18 11:20 02/22/18 11:20 02/22/18 11:20 02/22/18 11:20 02/22/18 11:20 General appearance: Present: no acute distress, thin - Head Head Exam: Present: normal inspection, normocephalic - Eye Pupils: Present: normal accommodation, PERRL - Respiratory Respiratory exam: Present: decreased breath sounds, CTAB - Cardiovascular Cardiovascular exam: Present: +S1, +S2 - GI/Abdominal Exam GI/Abdominal exam: Present: normal bowel sounds, soft - Extremities Exam Extremities exam: Present: normal capillary refill, normal inspection - Neurological Exam Neurological exam: Present: alert, oriented X3, strengths equal and symetr throughout - Skin Skin exam: Present: dry, normal color, warm Internal Medicine - CN: Reslt - Labs CBC & Chem 7: 02/22/18 03:18 02/22/18 03:19 Labs: Short CBC 02/22/18 Range/Units 03:18 WBC 3.2 L (4.3-11.1) K/mcL Hgb 7.9 L (11.5-15.4) g/dL Hct 24.9 L (35.3-44.9) % Plt Count 63 L (140-400) K/mcL Neutrophils # 2.7 (1.6-8.9) K/mcL BMP 02/22/18 03:19 Sodium 140 Potassium 3.7 Chloride 105 Carbon Dioxide 25 BUN 11 Creatinine 0.46 L Glucose 83 Calcium 8.2 L Liver Function 02/22/18 Range/Units 03:19 Total Bilirubin 0.2 L (0.3-1.0) mg/dL AST 21 (13-39) Units/L ALT 4 L (7-52) Units/L Alkaline Phosphatase 47 (34-104) Units/L Albumin 1.9 L (3.5-5.7) g/dL - ABG Interpretation ABG results: PT/INR, D-dimer PT 13.0 Seconds (9.4-12.1) H 02/22/18 03:18 - Impressions Impressions Thoracentesis Ultrasound 02/22/18 00:00 IMPRESSION: Successful ultrasound guided thoracentesis. D/ / Sourav Santiago MD / Sourav Santiago MD Interpreting Provider: Sourav Santiago MD Chest X-Ray 02/22/18 08:51 IMPRESSION: Interval decrease in size of left pleural effusion. No pneumothorax. D/ / 02/22/2018 09:55:32 Lisa Barkley MD / [facility] Interpreting Provider: Lisa Barkley MD Consult Discharge Plan - Plan Referrals: Andrew,Malik Triana MD [Non-Partnered Physician] - Palliative Quality Palliative Quality: Screen for Code Status: Yes, Screen for Goals of Care: Yes, Screen for Pain: Yes, If Pain Regimen Started, Initiate Bowel Regimen: NA (c/o loose stool), Screen for Nausea/Vomitting: Yes
[2018-02-22] MEDS: *HR* Morphine Sulfate SR (12 HR) 30 MG TABLET.ER PO SCH ×2 (15:43→23:59)
--- NOTE | 2018-02-22 16:19 | Electrocardiograph Report ---
[address] [place] [address] Test Date: 2018-02-21 Pat Name: Marleni Rodriguez Department: 102 Room: 3A21 Gender: F Internet Security Specialist: Forrest : 1935 Requested By: [id number] Order Number: [id number] Reading MD: Mini Scott Measurements Intervals [place] Rate: 78 P: 35 IA: 132 QRS: -16 QRSD: 126 T: 22 QT: 371 QTc: 404 Interpretive Statements SINUS RHYTHM POSSIBLE ANTERIOR MYOCARDIAL INFARCTION [30 ms Q WAVE IN V3/V4, OR R < 0.2 mV IN V4], OF INDETERMINATE AGE POSSIBLE OLD INFERIOR WV Electronically Signed On 02-22-2018 16:17:38 EDT by Mini Scott
--- NOTE | 2018-02-22 17:42 | Internal Med Progress Note ---
<Sharmila Bright - Last Filed: 02/22/18 17:38> Date of Encounter: 02/22/18 Time of Encounter: 10:30 - Assessment and plan (1) Pleural effusion Current Visit: Yes Status: Acute Assessment and plan: 02/21/18 CXR shows mod to large left pleural effusion with atelectasis; right- sided shift of trachea from midline Left-sided pleural effusion most likely related to pt's multiple myeloma 02/22/18 IR performed ultrasound-guided thoracentesis and removed 50mL serosanguinous fluid for palliative measures, but doesn't seem to have decreased pt's pain CXR s/p thoracentesis shows decreased left pleural effusion, no pneumothorax (2) Cancer related pain Current Visit: Yes Status: Chronic Assessment and plan: Generalized pain as well as low back pain d/t cancer burden, arthritis, osteoporosis MS Contin and roxicodone provide adequate pain control Oncology consulted, recommendations appreciated Palliative consulted recommendations appreciated - Continue pain meds - Supportive care (3) Weakness Current Visit: Yes Status: Acute Assessment and plan: Most likely d/t pt's cancer burden in addition to other comorbidities including deconditioning, poor nutritional status, h/o multiple chemo treatment lines, etc Pt has decided not to continue with treatment line proposed to begin 02/27 Oncology and palliative consulted, recommendations appreciated (4) IgA myeloma Current Visit: Yes Status: Chronic Assessment and plan: Diagnosed 2013 Recurrent, despite multiple lines of treatment Initially pt planned to start another line of treatment 02/27, but has elected to transition to hospice Goals of care are to d/c home with hospice Oncology and palliative following, recommendations appreciated (5) Hypothyroid Current Visit: Yes Status: Acute Assessment and plan: Continue home dose synthroid Qualifiers: Hypothyroidism type: other Qualified Code(s): E03.8 - Other specified hypothyroidism (6) HTN (hypertension) Current Visit: Yes Status: Acute Assessment and plan: Normotensive Qualifiers: Hypertension type: essential hypertension Qualified Code(s): I10 - Essential (primary) hypertension (7) Pancytopenia Current Visit: Yes Status: Acute Assessment and plan: Related to multiple myeloma and cancer treatments Hgb 7.9, WBC 3.2, Plt 63 (8) Counseling regarding advanced care planning and goals of care Current Visit: Yes Status: Acute Assessment and plan: As per palliative consult Pt would like to enroll in hospice after she is discharged to home tomorrow DME through [facility] MS Contin increased to 30mg Q8H Continue oxycodone for breakthrough pain Palliative recommendations appreciated - Time Spent With Patient Total time spent is greater than 50% in coordination of care (as documented) at patient's floor/unit and/or counseling patient: - Subjective Interval history: Seen and examined this morning at bedside. RN and patient's daughter were present in the room. Admits to generalized pain, dyspnea, and diarrhea. Denies fevers, chills, nausea, vomiting, chest pain, coughing, abdominal pain, wheezing , constipation, dysuria. - Constitutional Vitals: Temp Pulse Resp BP Pulse Ox 97.6 F 81 18 137/80 95 02/22/18 11:20 02/22/18 11:20 02/22/18 11:20 02/22/18 11:20 02/22/18 11:20 Exam: General: No acute distress, cachectic HEENT: head normocephalic/atraumatic, EOMI Cardio: RRR, no murmurs, +S1/S2 Pulm: CTAB, no wheezing, rhonchi, rales. Normal respiratory effort. Abdomen: soft, no masses palpated, BS+, no rebound, rigidity, guarding, distention Extremities: No LE edema, no calf tenderness, no cyanosis Back: pronounced kyphosis, approximately 1 cm stage 2 sacral ulcer on right side covered with foam dressing Neuro: AAOx3, no focal deficit, no speech deficit, mentation intact, CN II-XII grossly intact, moves extremities spontaneously MSK: no visible deformities Skin: warm, dry, pallor Psych: Appropriate mood and affect. Answers questions appropriately. Cooperative with exam Internal Medicine: Result - Labs CBC & Chem 7: 02/22/18 03:18 02/22/18 03:19 Labs: Short CBC 02/22/18 Range/Units 03:18 WBC 3.2 L (4.3-11.1) K/mcL Hgb 7.9 L (11.5-15.4) g/dL Hct 24.9 L (35.3-44.9) % Plt Count 63 L (140-400) K/mcL Neutrophils # 2.7 (1.6-8.9) K/mcL BMP 02/22/18 03:19 Sodium 140 Potassium 3.7 Chloride 105 Carbon Dioxide 25 BUN 11 Creatinine 0.46 L Glucose 83 Calcium 8.2 L Liver Function 02/22/18 Range/Units 03:19 Total Bilirubin 0.2 L (0.3-1.0) mg/dL AST 21 (13-39) Units/L ALT 4 L (7-52) Units/L Alkaline Phosphatase 47 (34-104) Units/L Albumin 1.9 L (3.5-5.7) g/dL - ABG Interpretation ABG results: PT/INR, D-dimer PT 13.0 Seconds (9.4-12.1) H 02/22/18 03:18 - Impressions Impressions Thoracentesis Ultrasound 02/22/18 00:00 IMPRESSION: Successful ultrasound guided thoracentesis. D/ / Sourav Santiago MD / Sourav Santiago MD Interpreting Provider: Sourav Santiago MD Chest X-Ray 02/22/18 08:51 IMPRESSION: Interval decrease in size of left pleural effusion. No pneumothorax. D/ / 02/22/2018 09:55:32 Lisa Barkley MD / [facility] Interpreting Provider: Lisa Barkley MD Consult Discharge Plan - Plan Referrals: Malik Morales MD [Non-Partnered Physician] - <Nate Bonner - Last Filed: 02/22/18 18:52> Date of Encounter: 02/22/18 - Assessment and plan (1) Pleural effusion Current Visit: Yes Status: Acute (2) IgA myeloma Current Visit: Yes Status: Chronic (3) Cancer related pain Current Visit: Yes Status: Chronic (4) Weakness Current Visit: Yes Status: Acute (5) Pancytopenia Current Visit: Yes Status: Acute (6) Hypothyroid Current Visit: Yes Status: Acute Qualifiers: Hypothyroidism type: other Qualified Code(s): E03.8 - Other specified hypothyroidism (7) HTN (hypertension) Current Visit: Yes Status: Acute Qualifiers: Hypertension type: essential hypertension Qualified Code(s): I10 - Essential (primary) hypertension (8) Counseling regarding advanced care planning and goals of care Current Visit: Yes Status: Acute - Time Spent With Patient Total time spent is greater than 50% in coordination of care (as documented) at patient's floor/unit and/or counseling patient: - Constitutional Vitals: Temp Pulse Resp BP Pulse Ox 97.6 F 81 18 137/80 95 02/22/18 11:20 02/22/18 11:20 02/22/18 11:20 02/22/18 11:20 02/22/18 11:20 Internal Medicine: Result - Labs CBC & Chem 7: 02/22/18 03:18 02/22/18 03:19 Labs: Short CBC 02/22/18 Range/Units 03:18 WBC 3.2 L (4.3-11.1) K/mcL Hgb 7.9 L (11.5-15.4) g/dL Hct 24.9 L (35.3-44.9) % Plt Count 63 L (140-400) K/mcL Neutrophils # 2.7 (1.6-8.9) K/mcL BMP 02/22/18 03:19 Sodium 140 Potassium 3.7 Chloride 105 Carbon Dioxide 25 BUN 11 Creatinine 0.46 L Glucose 83 Calcium 8.2 L Liver Function 02/22/18 Range/Units 03:19 Total Bilirubin 0.2 L (0.3-1.0) mg/dL AST 21 (13-39) Units/L ALT 4 L (7-52) Units/L Alkaline Phosphatase 47 (34-104) Units/L Albumin 1.9 L (3.5-5.7) g/dL - ABG Interpretation ABG results: PT/INR, D-dimer PT 13.0 Seconds (9.4-12.1) H 02/22/18 03:18 - Impressions Impressions Thoracentesis Ultrasound 02/22/18 00:00 IMPRESSION: Successful ultrasound guided thoracentesis. D/ / Sourav Santiago MD / Sourav Santiago MD Interpreting Provider: Sourav Santiago MD Chest X-Ray 02/22/18 08:51 IMPRESSION: Interval decrease in size of left pleural effusion. No pneumothorax. D/ / 02/22/2018 09:55:32 Lisa Barkley MD / [facility] Interpreting Provider: Lisa Barkley MD - Attending Attestation I examined this patient and my medical decision-making was reviewed with the Resident Physician on 02/22/18. I agree with the documented findings, disposition and treatment plan as described except to the extent set forth below. Ms Rodriguez is currently admitted for resp failure and hypoxia due to pleural effusion. She remains moderate risk due to potential for worsening clinical status. Ms Rodriguez is still dyspneic. She has opted for palliative and hospice care. No fever. Not much fluid was able to be removed. Exam alert Mod resp distress Mucus membranes dry Heart distant Lungs diminished I/P 1. Hypoxia 2. Pleural effusion Further diagnoses and plan as above.
--- NOTE | 2018-02-22 18:44 | Discharge Summary ---
<Nate Bonner - Last Filed: 02/23/18 16:50> Orders not resulted at time of discharge: Pending orders 02/21/18 21:27 Culture,Anaerobic [RM] Routine Culture,Body Fluid [RM] Routine Fungal Culture [MYC] Routine Date of Encounter: 02/23/18 - Discharge Diagnosis (1) Pleural effusion Status: Acute (2) IgA myeloma Status: Chronic (3) Cancer related pain Status: Chronic (4) Weakness Status: Acute (5) Pancytopenia Status: Acute (6) Hypothyroid Status: Chronic Qualifiers: Hypothyroidism type: other Qualified Code(s): E03.8 - Other specified hypothyroidism (7) HTN (hypertension) Status: Acute Qualifiers: Hypertension type: essential hypertension Qualified Code(s): I10 - Essential (primary) hypertension (8) Counseling regarding advanced care planning and goals of care Status: Acute (9) Severe protein-calorie malnutrition Priority: Secondary Status: Chronic Hospital course: Ms. Rodriguez is a 82 year old female - Time Spent with Patient Total time spent providing and/or coordinating discharge services: 37min - Discharge Medications Home Medications: Multivitamin [Multivitamins] 1 each PO DAILY 05/28/15 [History] Aspirin 81 mg PO DAILY 06/04/15 [History] Furosemide [Lasix] 20 mg PO DAILY PRN 02/07/17 [History] Lidocaine/Prilocaine CREAM [Emla] 1 gm TP AD 02/07/17 [History] Meclizine [Antivert] 12.5 mg PO TID PRN 02/07/17 [History] Prochlorperazine Maleate [Compazine] 10 mg PO Q6HR PRN 02/07/17 [History] Cyanocobalamin (B-12) [Vitamin B12] 1,000 mcg PO DAILY #90 tablet 05/15/17 [Rx] Omeprazole [PriLOSEC] 20 mg PO BIDAC #60 cap 08/21/17 [Rx] valACYclovir [Valtrex] 500 mg PO BID #60 tablet 10/20/17 [Rx] Diphenoxylate/Atropine [Lomotil 2.5 mg/0.025 mg] 1 tab PO QID PRN 5 Days #30 tablet 11/28/17 [Rx] Morphine Sulfate [Arymo ER] 30 mg PO BID 30 Days #60 tab.po.er 02/08/18 [Rx] Potassium Chloride [K-Tab ER] 1 tab PO DAILY #30 tablet.er 02/19/18 [Rx] Levothyroxine Sodium 75 mcg PO DAILY 02/21/18 [History] Metoprolol [Lopressor] 25 mg PO BID 02/21/18 [History] Oxycodone HCl [Oxaydo] 1 tab PO Q4H PRN 02/21/18 [History] Allergies/Adverse Reactions: 3 Allergy/AdvReac Type Severity Reaction Status Date / Time Sulfa (Sulfonamide Allergy Hives Verified 02/20/18 08:18 Antibiotics) Date of admission: 02/21/18 21:17 Primary care physician: PCP NONE Consults: 02/21/18 21:20 Consult to Oncology [CONS] Routine Consulting Provider: [facility] Reason for Consult: clinical deterioration, PD Call Completed: No 02/21/18 22:18 Consult to Nutrition [CONS] Routine Comment: Consulting Provider: NUTRITION Reason for Dietary Consult: Diet Education 02/22/18 12:46 Consult to Palliative Care [CONS] Routine Comment: Consulting Provider: [facility] Reason for Consult: Patient wishes to enroll in hospice at home Call Completed: Yes - Constitutional Vitals: Temp Pulse Resp BP Pulse Ox 97.9 F 95 16 124/66 93 02/23/18 14:53 02/23/18 14:53 02/23/18 14:53 02/23/18 14:53 02/23/18 14:53 - Patient Status Disposition: Hospice - Home Condition: Undetermined - Discharge Instructions Follow Up With: Malik Morales MD [Non-Partnered Physician] - Additional Instructions: Please take all your medications as they are prescribed. Please follow up with hospice. - Attending Attestation I examined this patient and my medical decision-making was reviewed with the Resident Physician on 02/23/18. I agree with the documented findings, disposition and treatment plan as described except to the extent set forth below. Ms Rodriguez has been admitted for resp failure due to pleural effusion. She has decided to enroll in hospice. She is to be discharged home with Hospice care. Exam Alert Comfortable Not tachycardic Mucus membranes dry Lungs diminished Plan D/C home with hospice. <Sharmila Bright - Last Filed: 02/23/18 21:07> Orders not resulted at time of discharge: Pending orders 02/21/18 21:27 Culture,Anaerobic [RM] Routine Culture,Body Fluid [RM] Routine Fungal Culture [MYC] Routine Date of Encounter: 02/23/18 Time of Encounter: 11:30 - Discharge Diagnosis (1) Counseling regarding advanced care planning and goals of care Priority: Secondary Status: Acute (2) Pleural effusion Priority: Primary Status: Acute (3) Cancer related pain Priority: Secondary Status: Chronic (4) Weakness Priority: Secondary Status: Acute (5) IgA myeloma Priority: Secondary Status: Chronic (6) Hypothyroid Priority: Secondary Status: Chronic Qualifiers: Hypothyroidism type: other Qualified Code(s): E03.8 - Other specified hypothyroidism (7) HTN (hypertension) Priority: Secondary Status: Acute Qualifiers: Hypertension type: essential hypertension Qualified Code(s): I10 - Essential (primary) hypertension (8) Pancytopenia Priority: Secondary Status: Acute Hospital course: Ms. Rodriguez is a 82 year old female with a PMHx of multiple myeloma, HTN, osteoporosis presented to the ED with a complaint of SOB, weakness, poor apatite. She is receiving chemo and radiation therapy to her chest at the cancer center. Vitals in ED unremarkable. Labs significant for pancytopenia with WBC of 3.6, Hgb 9.0, platelets 66 which are consistent with her baseline except for platelet counts. Other significant labs include elevated coagulation studies and BNP of 528. Chest Xray showed moderate to left pleural effusion with atelectasis. She was admitted for SOB secondary to pleural effusion to medicine service. During course of hospital stay, patient did mildly improve. She had a thoracentesis performed by interventional radiology with 50 mL of fluid taken off. Oncology and palliative care were both consulted. They suggested that her pain and weakness were most likely related to her cancer burden. Long discussion was had with patient and family and the decision to pursue hospice was made. All questions were answered. Patient did admit to some improvement of symptoms upon discharge. Labs did not change significantly. She will be discharged home with hospice care. Discharge discussed with: patient, family - Time Spent with Patient Total time spent providing and/or coordinating discharge services: Date of admission: 02/21/18 21:17 Primary care physician: PCP NONE Consults: 02/21/18 21:20 Consult to Oncology [CONS] Routine Consulting Provider: [facility] Reason for Consult: clinical deterioration, PD Call Completed: No 02/21/18 22:18 Consult to Nutrition [CONS] Routine Comment: Consulting Provider: NUTRITION Reason for Dietary Consult: Diet Education 02/22/18 12:46 Consult to Palliative Care [CONS] Routine Comment: Consulting Provider: [facility] Reason for Consult: Patient wishes to enroll in hospice at home Call Completed: Yes Discharging clinician: Sharmila Bright Anticipated date of discharge: 02/23/18 - Constitutional Vitals: Temp Pulse Resp BP Pulse Ox 97.6 F 81 18 137/80 95 02/22/18 11:20 02/22/18 11:20 02/22/18 11:20 02/22/18 11:20 02/22/18 11:20 Exam: General: AAOx3, No acute distress, resting comfortably in bed HEENT: head normocephalic/atraumatic, EOMI, PERRL, sclera anicteric Neck: Supple, Cardio: RRR, no murmurs, +S1/S2 Pulm: CTAB, no wheezing, rhonchi, rales. Normal respiratory effort. Abdomen: soft, BS+, non distended Extremities: mild bilat ankle edema, DP pulses 2+, no cyanosis Back: severely kyphotic Neuro: AAOx3, no focal deficit, no speech deficit, mentation intact, moves extremities spontaneously MSK: temporal muscle wasting, generalized muscle atrophy Skin: clean, dry, no visible rashes Psych: Appropriate mood and affect. Answers questions appropriately. Cooperative with exam - Patient Status Overall status at discharge: patient is not back to baseline - Diet and Activity Activity: resume usual activities as tolerated Diet: advance to your usual diet
[2018-02-23] MEDS: *HR* OxyCODONE Immed Rel 5 MG TABLET PO PRN (06:26)
[2018-02-23] MEDS: Cyanocobalamin (B-12) 1,000 MCG TABLET PO SCH (10:16)
[2018-02-23] MEDS: *HR* Morphine Sulfate SR (12 HR) 30 MG TABLET.ER PO SCH (10:16)
[2018-02-23] MEDS: Aspirin 81 MG TAB.CHEW PO SCH (10:16)
[2018-02-23] MEDS: valACYclovir 500 MG TABLET PO SCH (10:16)
--- NOTE | 2018-02-23 12:33 | Palliative Progress Note ---
Date of Encounter: 02/23/18 Time of Encounter: 11:00 - Assessment and plan (1) Cancer related pain Current Visit: Yes Status: Chronic Assessment and plan: Patient tolerated increase in MS Contin. Will continue 30mg every 8 hours. She utilized Oxycodone x2 for breakthrough pain last 24 hours. (2) Counseling regarding advanced care planning and goals of care Current Visit: Yes Status: Acute Assessment and plan: Will be discharged home today with [facility] - they will be enrolling pt at home after discharge. D/W Dr. Eubanks and Dr. Bonner (3) CHF (congestive heart failure) Current Visit: Yes Status: Acute Qualifiers: Heart failure type: unspecified Heart failure chronicity: acute on chronic Qualified Code(s): I50.9 - Heart failure, unspecified (4) Pleural effusion Current Visit: Yes Status: Acute (5) IgA myeloma Current Visit: Yes Status: Chronic - Time Spent With Patient Total time spent is greater than 50% in coordination of care (as documented) at patient's floor/unit and/or counseling patient: - Subjective Interval history: Patient states she is more comfortable today, and thinks the increased dose of MS Contin has been helpful. and daughter at bedside. Patient anxious to go home today. - Constitutional Vitals: Abnormal lab results WBC 3.2 K/mcL (4.3-11.1) L 02/22/18 03:18 RBC 2.29 M/mcL (3.82-4.97) L 02/22/18 03:18 Hgb 7.9 g/dL (11.5-15.4) L 02/22/18 03:18 Hct 24.9 % (35.3-44.9) L 02/22/18 03:18 MCV 108.7 fL (83.0-100.0) H 02/22/18 03:18 MCH 34.5 pg (28.0-33.3) H 02/22/18 03:18 RDW 17.9 % (11.5-14.5) H 02/22/18 03:18 Plt Count 63 K/mcL (140-400) L 02/22/18 03:18 Lymphocytes # 0.3 K/mcL (0.6-4.6) L 02/22/18 03:18 Platelet Estimate Decreased (Normal) L 02/22/18 03:18 Immature Plt Fraction 6.2 % (1.1-6.1) H 02/22/18 03:18 Anisocytosis 1+ (Not Present) A 02/22/18 03:18 PT 13.0 Seconds (9.4-12.1) H 02/22/18 03:18 Creatinine 0.46 mg/dL (0.60-1.20) L 02/22/18 03:19 Calcium 8.2 mg/dL (8.6-10.3) L 02/22/18 03:19 Total Bilirubin 0.2 mg/dL (0.3-1.0) L 02/22/18 03:19 ALT 4 Units/L (7-52) L 02/22/18 03:19 Creatine Kinase 21 Units/L (30-223) L 02/21/18 18:19 B-Natriuretic Peptide 528 pg/mL (Less than 100) H 02/21/18 18:19 Albumin 1.9 g/dL (3.5-5.7) L 02/22/18 03:19 Globulin 5.3 g/dL (2.4-3.5) H 02/22/18 03:19 Albumin/Globulin Ratio 0.4 (1.1-2.2) L 02/22/18 03:19 Urine Protein 30 mg/dL (Neg-Trace) H 02/21/18 18:45 Ur Squamous Epith Cells Many per lpf (None-Few) H 02/21/18 18:45 General appearance: Present: no acute distress - Respiratory Respiratory exam: Present: decreased breath sounds, CTAB - Cardiovascular Cardiovascular exam: Present: +S1, +S2 - GI/Abdominal GI/Abdominal exam: Present: normal bowel sounds, soft - Extremities Exam Extremities exam: Present: normal capillary refill, normal inspection - Neurological Exam Neurological exam: Present: alert, oriented X3, strengths equal and symetr throughout - Skin Skin exam: Present: dry, warm Palliative Quality Palliative Quality: Screen for Code Status: Yes, Screen for Goals of Care: Yes, Screen for Pain: Yes, If Pain Regimen Started, Initiate Bowel Regimen: NA (c/o loose stool), Screen for Nausea/Vomitting: Yes Code Status: 02/23/18 08:08 DNR [Resuscitation Status: Active] [RES] Routine Comment: Resuscitation Status: DNR-Comfort Care - Labs CBC & Chem 7: 02/22/18 03:18 02/22/18 03:19 - Impressions Impressions Thoracentesis Ultrasound 02/22/18 00:00 IMPRESSION: Successful ultrasound guided thoracentesis. D/ / Sourav Santiago MD / Sourav Santiago MD Interpreting Provider: Sourav Santiago MD - ABG Interpretation ABG results: PT/INR, D-dimer PT 13.0 Seconds (9.4-12.1) H 02/22/18 03:18 Consult Discharge Plan - Plan Referrals: Malik Morales MD [Non-Partnered Physician] -
--- NOTE | 2018-02-23 13:01 | Physician Discharge Referral ---
Home Health/Hosp Referral Info Transfer to: Hospice - Diagnosis (1) Counseling regarding advanced care planning and goals of care Priority: Secondary Status: Acute (2) Pleural effusion Priority: Primary Status: Acute (3) Cancer related pain Priority: Secondary Status: Chronic (4) Weakness Priority: Secondary Status: Acute (5) IgA myeloma Priority: Secondary Status: Chronic (6) Hypothyroid Priority: Secondary Status: Acute (7) HTN (hypertension) Priority: Secondary Status: Acute (8) Pancytopenia Priority: Secondary Status: Acute - Respiratory Orders Smoking Cessation: Smoking cessation has been advised. For more information, call the [place] Tobacco Quit Line at 1-128-YPFM-NOW. - Services Needed Following services are medically necessary services: Nursing - Transfer Medications Home Medications: Multivitamin [Multivitamins] 1 each PO DAILY 05/28/15 [History] Aspirin 81 mg PO DAILY 06/04/15 [History] Furosemide [Lasix] 20 mg PO DAILY PRN 02/07/17 [History] Lidocaine/Prilocaine CREAM [Emla] 1 gm TP AD 02/07/17 [History] Meclizine [Antivert] 12.5 mg PO TID PRN 02/07/17 [History] Prochlorperazine Maleate [Compazine] 10 mg PO Q6HR PRN 02/07/17 [History] Cyanocobalamin (B-12) [Vitamin B12] 1,000 mcg PO DAILY #90 tablet 05/15/17 [Rx] Omeprazole [PriLOSEC] 20 mg PO BIDAC #60 cap 08/21/17 [Rx] valACYclovir [Valtrex] 500 mg PO BID #60 tablet 10/20/17 [Rx] Diphenoxylate/Atropine [Lomotil 2.5 mg/0.025 mg] 1 tab PO QID PRN 5 Days #30 tablet 11/28/17 [Rx] Morphine Sulfate [Arymo ER] 30 mg PO BID 30 Days #60 tab.po.er 02/08/18 [Rx] Potassium Chloride [K-Tab ER] 1 tab PO DAILY #30 tablet.er 02/19/18 [Rx] Levothyroxine Sodium 75 mcg PO DAILY 02/21/18 [History] Metoprolol [Lopressor] 25 mg PO BID 02/21/18 [History] Oxycodone HCl [Oxaydo] 1 tab PO Q4H PRN 02/21/18 [History] Allergies/Adverse Reactions: 3 Allergy/AdvReac Type Severity Reaction Status Date / Time Sulfa (Sulfonamide Allergy Hives Verified 02/20/18 08:18 Antibiotics) Certification: Further, I certify that my clinical findings support that this patient is homebound (i.e. absences from home require considerable and taxing effort and are for medical reasons or mormonism services or infrequently or short duration when for other reasons) because: Homebound Reason: Patient requires assistance of a person or device to safely leave home, Leaving home requires considerable and taxing effort due to condition Attestation: My signature below is to certify that this patient is under my care and that I, or nurse practitioner, or a physician's head start assistant teacher working with me, has a face-to -face encounter with this patient.
[2018-02-23 14:55] VITALS: BP 124/66
--- NOTE | 2018-02-24 09:49 | Event Note ---
Date of Encounter: 02/24/18 Time of Encounter: 09:47 Hospice senior medical director certification of terminal illness: Hospice benefit. Start: 02/23/2018 Hospice benefit. In: +90 days Palliative performance scale: 30-40% History: The patient has a history of multiple myeloma with decline especially over the last month with increasing shortness of breath and weakness. Was diagnosed clear back in 2012 she has had multiple rounds of treatment of chemotherapy and radiation and is felt that she is no longer candidate for further aggressive care. She wishes to be comfort care only and given the overall decline with no further aggressive treatment I believe that These findings support a life expectancy of 6 months or less. I attest that I have compose the above narrative based on my review of the patient's medical records, and or on my examination of the patient. Ibrahima Luciano M.D. Associate medical office professional instructor. [facility]
== END 2018-02-23 15:56 | disposition hospice, home (50) | DRG 291 ==
LOC: EMEROO 18:15 → 3ANU 18:15 → SUATTDRO 21:17 → 3ANU 21:30
PROVIDERS: ADMIT Internal Medicine; ATTEND Internal Medicine